=== PATIENT | male | born 1990 | race Caucasian/White ===

== ENCOUNTER 2017-06-11 15:00 | Emergency (ER) | payer MEDICAID ==
[2017-06-11 15:07] VITALS: BP 122/73; PULSE 72; RESP 16; TEMP 97.9; O2SAT 99
--- NOTE | 2017-06-11 15:51 | ED PDOC ---
Lower Extremity Pain/Injury Time Seen by Provider: 06/11/17 15:02 Chief Complaint (Nursing): Lower Extremity Problem/Injury Chief Complaint (Provider): Left Toe pain History Per: Patient Additional Complaint(s): Pt is a 26 yo male, no PMH, presents to ED with c.o left foot great toe pain x 7 months. Patient denies injury. PMD: Kyle Julien Past Medical History Reviewed: Historical Data, Nursing Documentation, Vital Signs Vital Signs: Last Vital Signs Temp 97.9 F 06/11/17 15:04 Pulse 72 06/11/17 15:04 Resp 16 06/11/17 15:04 BP 122/73 06/11/17 15:04 Pulse Ox 99 06/11/17 15:04 - Medical History PMH: Depression Denies: Diabetes, Hepatitis, HIV, HTN, Seizures, Sexually Transmitted Disease - Family History Family History: States: No Known Family Hx - Social History Current smoker - smoking cessation education provided: No Alcohol: None Drugs: Denies - Home Medications Home Medications: Ambulatory Orders Medication Instructions Recorded Amoxicillin/Clavulanate [Augmentin 1 tab PO BID #14 tab 06/11/17 875 MG-125 MG] oxyCODONE/Acetaminophen [Percocet 1 ea PO Q6 PRN #10 tab 06/11/17 5/325 mg Tab] - Allergies Allergies/Adverse Reactions: Allergies Allergy/AdvReac Type Severity Reaction Status Date / Time No Known Allergies Allergy Verified 06/26/15 15:11 Review of Systems ROS Statement: Except As Marked, All Systems Reviewed And Found Negative Musculoskeletal: Positive for: Other (Left great toe pain) Physical Exam - Reviewed Nursing Documentation Reviewed: Yes Vital Signs Reviewed: Yes - Physical Exam Appears: Positive for: Non-toxic, No Acute Distress Head Exam: Positive for: ATRAUMATIC, NORMAL INSPECTION, NORMOCEPHALIC Skin: Positive for: Normal Color, Warm, Dry. Negative for: Rash Eye Exam: Positive for: Normal appearance, EOMI, PERRL Extremity: Positive for: Normal ROM, Other (Left great toe, (+) erythema and granulation tissue.). Negative for: Tenderness, Deformity, Swelling Neurologic/Psych: Positive for: Alert, Oriented, Gait - ECG O2 Sat by Pulse Oximetry: 99 (RA) Pulse Ox Interpretation: Normal Medical Decision Making Medical Decision Makin Initial Impression 26 y/o male presenting with left toe pain Initial Plan: * Lidocaine 1% (20mL) 10mL IJ * Marcaine 0.5% 10ml IJ * Reevaluation Podiatry consulted- ingrown toenail removed. see procedure note. Scribe Attestation Documented by Gaby Alonzo acting as a scribe for Pat Gray PA-C. Scribe Attestation All medical record entries made by the Scribe were at my direction and personally dictated by me. I have reviewed the chart and agree that the record accurately reflects my personal performance of the history, physical exam, medical decision making, and the department course for this patient. I have also personally directed, reviewed, and agree with the discharge instructions and disposition. Disposition - Clinical Impression Clinical Impression: Ingrown toenail - Patient ED Disposition Is Patient to be Admitted: No - Disposition Disposition: Routine/Home Disposition Time: 17:50 Condition: STABLE Prescriptions: Amoxicillin/Clavulanate [Augmentin 875 MG-125 MG] 1 tab PO BID #14 tab oxyCODONE/Acetaminophen [Percocet 5/325 mg Tab] 1 ea PO Q6 PRN #10 tab PRN Reason: Pain, Severe (8-10) Instructions: Ingrown Nail (ED) Forms: [employer] (Japanese) - POA Present On Arrival: None
[2017-06-11] MEDS ORDERED: Bupivacaine 0.5% Inj(30mL) IJ ONE (17:32)
[2017-06-11] MEDS ORDERED: Lidocaine 1% Inj (20ml) IJ ONE (17:32)
[2017-06-11] MEDS ORDERED: Bacitracin 500 Units/gm Oint Foilpak UD ONE (17:33)
--- NOTE | 2017-06-12 08:42 | CP.PCM.CON ---
History of Present Illness - History of Present Illness History of Present Illness: 26 year old male with no PMH was seen in the ED for left hallux infection. Patient reports he has had an ingrown nail for the past 6 months. In the last 2 months, he has noticed drainage to his hallux. He has been applying triple antibiotics daily. He reports pain when there is pressure. Generally he wears sandals so he doesn't feel the pain. At this moment, he rates the pain 4/10 and describes the pain as a stabbing pain. Patient denies any numbness or tingling. Denies n/v/sob/cp/chills or f. Denies calf pain. PMH: none PSH: none SH: denies smoking, drinking, or ilicit drug use ALL: NKDA Meds: none FH: noncontributory Past Patient History - Infectious Disease Hx of Infectious Diseases: None - Past Social History Alcohol: None Drugs: Denies - CARDIAC Hx Hypertension: No - PULMONARY Hx Tuberculosis: No - NEUROLOGICAL Hx Seizures: No - HEMATOLOGICAL/ONCOLOGICAL Hx Human Immunodeficiency Virus (HIV): No - GENITOURINARY/GYNECOLOGICAL Hx Sexually Transmitted Disorders: No - PSYCHIATRIC Hx Depression: Yes - SURGICAL HISTORY Hx Surgeries: No - ANESTHESIA Hx Anesthesia: No Meds Home Medications: Home Medication List Medication Instructions Recorded Confirmed Type Amoxicillin/Clavulanate [Augmentin 1 tab PO BID #14 tab 06/11/17 Rx 875 MG-125 MG] oxyCODONE/Acetaminophen [Percocet 1 ea PO Q6 PRN #10 tab 06/11/17 Rx 5/325 mg Tab] Allergies/Adverse Reactions: Allergies Allergy/AdvReac Type Severity Reaction Status Date / Time No Known Allergies Allergy Verified 06/26/15 15:11 Physical Exam - Constitutional Appears: Well, Non-toxic, No Acute Distress - Extremities Exam Additional comments: Vasc: DP and PT 2/4 bilaterally, CFT <3 seconds x10 digits, digital hair present , temperature gradient WNL, localized edema noted to the left hallux Ortho: Severe pain with palpation to the lateral nail folds and lateral border of the left hallux nail plate. MM is 5/5 in all four compartments: dorsiflexion , plantarflexion, inversion and eversion Neuro: protective and light touch intact Derm: Left: 10% of the Lateral nail plate elevated from the nail bed of the 1st hallux, granuloma tissue noted along the lateral border of the nail plate, intact, dried sangious drainage noted, no active drainage noted, erythema noted to the entire hallux, no tunnelling, no tracking, no probe to bone - Neurological Exam Neurological exam: Alert, Oriented x3 - Psychiatric Exam Psychiatric exam: Normal Affect, Normal Mood Results - Vital Signs Recent Vital Signs: Last Vital Signs Temp 97.9 F 06/11/17 15:04 Pulse 72 06/11/17 15:04 Resp 16 06/11/17 15:04 BP 122/73 06/11/17 15:04 Pulse Ox 99 06/11/17 18:41 Assessment & Plan - Assessment and Plan (Free Text) Assessment: 26 year old male with no PMH seen in the ED for left hallux infection secondary to ingrown nail Plan: Patient examined and evaluated. All questions/concerns addressed. Labs, charts, vitals reviewed Discussed plan in detail with attending Dr. Gannon Patient has exhausted all conservative treatment and now opts for partial nail avulsion Patient explained the benefits, risks, complications and alternatives. Patient agrees to the partial nail avulsion of the left hallux. Injected in a hallux local block fashion of 1:1 mixture of 10 cc of 1% lidocaine plain and .5% marcaine plain. Prep the site with betadine, tourniquet placed, and began. Patient's lateral nail border removed and flushed with betadine. Dressed with bactracin, dsd, and coban. Advised to keep on for 2 days and may change dressing daily afterwards. Keep c/d/i Recommends ED abx to take Recommends ED pain medication prn Will f/u in clinic with Dr. Gannon in 1 week Thank you for the consult
== END 2017-06-11 18:37 | disposition home or self-care (01) ==
LOC: H.ER 15:00
DX: L60.0 Ingrowing nail (principal)